=== PATIENT | female | born 1965 | race Caucasian/White ===

== ENCOUNTER → 2017-09-24 | Outpatient (CLI) | payer OTHER | LOC: M ONCR 09:51 | DX: C54.1 Malignant neoplasm of endometrium (principal) | CPT/HCPCS: G0463 ==

== ENCOUNTER 2017-10-02 14:40 | Outpatient (RCR) | payer OTHER | END 2017-10-26 | LOC: M ONCR 14:40 | DX: C54.1 Malignant neoplasm of endometrium (principal) | CPT/HCPCS: 77300 ==

== ENCOUNTER → 2017-10-02 | Outpatient (CLI) | payer OTHER | LOC: M RAD 14:04 | DX: C54.1 Malignant neoplasm of endometrium (principal) ==

== ENCOUNTER 2017-10-28 10:27 | Outpatient (RCR) | payer OTHER | END 2017-11-25 | LOC: M ONCR 10:27 | DX: C54.1 Malignant neoplasm of endometrium (principal) | CPT/HCPCS: 77336 ==

== ENCOUNTER → 2017-12-25 | Outpatient (CLI) | payer OTHER | LOC: M ONCR 13:15 | DX: C54.1 Malignant neoplasm of endometrium (principal) | CPT/HCPCS: G0463 ==

== ENCOUNTER → 2018-06-25 | Outpatient (CLI) | payer OTHER | LOC: M ONCR 14:51 | DX: C54.1 Malignant neoplasm of endometrium (principal) | CPT/HCPCS: G0463 ==

== ENCOUNTER → 2019-01-08 | Outpatient (REF) | payer OTHER | LOC: M LAB LCGH 13:16 | PROVIDERS: ATTEND Obstetrics & Gynecology | DX: Z01.419 Encounter for gynecological examination (general) (routine) without abnormal findings (principal) ==

== ENCOUNTER → 2019-05-22 | Outpatient (REF) | payer OTHER | LOC: M LAB LCGH 11:36 | PROVIDERS: ATTEND Obstetrics & Gynecology | DX: Z12.4 Encounter for screening for malignant neoplasm of cervix (principal); Z85.41 Personal history of malignant neoplasm of cervix uteri ==

== ENCOUNTER → 2019-08-13 | Outpatient (REF) | payer OTHER | LOC: M LAB LCGH 11:10 | PROVIDERS: ATTEND Obstetrics & Gynecology | DX: Z85.3 Personal history of malignant neoplasm of breast (principal); Z90.710 Acquired absence of both cervix and uterus; Z12.72 Encounter for screening for malignant neoplasm of vagina ==

== ENCOUNTER → 2020-04-06 | Outpatient (CLI) | payer OTHER ==
[2020-04-06 15:18] LABS: BASO % 0.3 % (0.0-1.0); EOS # 0.1 10^3/uL (0.0-0.5); EOS % 2.4 % (0.0-3.0); HEMATOCRIT 43.2 % (36.0-47.0); HEMOGLOBIN 13.8 g/dl (12.0-15.5); LYMPH # 0.9 10^3/uL (1.5-5.0); LYMPH % 23.5 % (24.0-44.0); MEAN CORPUSCULAR HEMOGLOBIN 29.7 pg (27.0-33.0); MEAN CORPUSCULAR HGB CONC 31.9 g/dl (32.0-36.5); MEAN CORPUSCULAR VOLUME 92.9 fl (80.0-96.0); MONO # 0.3 10^3/uL (0.0-0.8); MONO % 8.2 % (0.0-5.0); NEUTROPHILS # 2.5 10^3/uL (1.5-8.5); NEUTROPHILS % 64.8 % (36.0-66.0); PLATELET COUNT, AUTOMATED 217 10^3/uL (150-450); RED BLOOD COUNT 4.65 10^6/uL (4.00-5.40); WHITE BLOOD COUNT 3.8 10^3/uL (4.0-10.0)
[2020-04-06 15:19] LABS: AMORPHOUS SEDIMENT MODERATE (NEGATIVE); APPEARANCE, URINE TURBID (CLEAR); BACTERIA, URINE AUTO NEGATIVE (NEGATIVE); BILIRUBIN, URINE AUTO NEGATIVE (NEGATIVE); BLOOD, URINE BLOOD NEGATIVE (NEGATIVE); COLOR, URINE YELLOW (YELLOW); GLUCOSE, URINE (UA) AUTO NEGATIVE (NEGATIVE); KETONE, URINE AUTO NEGATIVE (NEGATIVE); LEUKOCYTE ESTERASE, URINE AUTO TRACE (NEGATIVE); MUCUS, URINE LARGE (NEGATIVE); NITRITE, URINE AUTO NEGATIVE (NEGATIVE); PROTEIN, URINE AUTO NEGATIVE (NEGATIVE); RBC, URINE AUTO 0 /HPF (0-3); SPECIFIC GRAVITY URINE AUTO 1.029 (1.002-1.035); SQUAMOUS EPITHELIAL CELL UR AU 0 /HPF (0-6); UROBILINOGEN, URINE AUTO 0.2 mg/dL (0.0-2.0); WBC, URINE AUTO 0 /HPF (0-3)
[2020-04-06 15:32] LABS: C REACTIVE PROTEIN QUANTITATIV 0.49 MG/DL (0.00-0.30); COMPLEMENT C3 153 MG/DL (90-180); COMPLEMENT C4 31 MG/DL (10-40); FREE T4 0.87 NG/DL (0.76-1.46); THYROID STIMULATING HORMONE 0.508 uIU/ML (0.358-3.740); TOTAL PROTEIN 6.7 GM/DL (6.4-8.2)
[2020-04-06 15:33] LABS: THYROID PEROXIDASE ANTIBODY 53.5 U/ML (<60.0)
[2020-04-07 15:06] LABS: ALBUMIN 4.02 GM/DL (3.29-5.55); ALPHA-1-GLOBULIN % 4.6 % (2.9-4.9); ALPHA-1-GLOBULINS 0.31 GM/DL (0.17-0.41); ALPHA-2-GLOBULINS 0.86 GM/DL (0.42-0.99); ALPHA-2-GLOBULINS % 12.9 % (7.1-11.8); BETA-1-GLOBULINS 0.36 GM/DL (0.28-0.60); BETA-1-GLOBULINS % 5.3 % (4.7-7.2); BETA-2-GLOBULINS 0.37 GM/DL (0.19-0.55); BETA-2-GLOBULINS % 5.5 % (3.2-6.5); GAMMA GLOBULIN % 11.7 % (11.1-18.8); GAMMA GLOBULINS 0.78 GM/DL (0.65-1.58)
[2020-04-08 12:09] LABS: ANA (HEP2) Positive (.); ANTI DS-DNA AB Negative (Negative); ANTI-SMOOTH MUSCLE ANTIBODY 21 Units (0-19); CYCLIC CITRULLINATED PEPTIDE 12 units (0-19); SSA SJOGRENS A <0.2 AI (0.0-0.9); SSB SJOGRENS B <0.2 AI (0.0-0.9)
--- NOTE | 2020-04-26 13:18 | REPPI ---
BILATERAL HAND SERIES CLINICAL: Arthritis. TECHNIQUE: AP, lateral, and bilateral oblique views of the right and left hand. FINDINGS: Relatively symmetric generalized age-related changes are noted. There is minimal sclerosis and subtle joint space narrowing at the interphalangeal level without further degenerative findings noted. IMPRESSION: Minimal joint space changes at the interphalangeal joint. No further evidence for osteoarthritic or inflammatory arthritic changes. MTDD
--- NOTE | 2020-04-26 13:18 | REPPI ---
BILATERAL WRIST SERIES CLINICAL: Arthritis. TECHNIQUE: AP, lateral, and bilateral oblique views of the right and left wrist. FINDINGS: The carpal bones are intact and essentially symmetric and age appropriate. Minimal pancarpal sclerosis and minimal joint space narrowing at the radiocarpal joint line noted bilaterally. No further overt osteoarthritic or inflammatory arthritic degenerative changes are appreciated. There is no evidence for acute or healed injury. IMPRESSION: Essentially age-related changes. No overt osteoarthritic or inflammatory arthritic findings noted. MTDD
== END ==
LOC: M PLAIMG 10:57
PROVIDERS: ATTEND Internal Medicine
DX: M25.531 Pain in right wrist (principal); M25.532 Pain in left wrist; D72.819 Decreased white blood cell count, unspecified; M13.0 Polyarthritis, unspecified; R79.82 Elevated C-reactive protein (CRP)

== ENCOUNTER → 2020-08-15 | Outpatient (REF) | payer OTHER ==
[2020-08-15 19:43] LABS: CLOSTRIDIUM DIFFICILE PCR NEGATIVE (NEGATIVE)
== END ==
LOC: M LAB REF 16:00
PROVIDERS: ATTEND Internal Medicine Gastroenterology
DX: R19.7 Diarrhea, unspecified (principal)

== ENCOUNTER → 2020-09-17 | Outpatient (CLI) | payer OTHER ==
[~2020-09-17] MED LIST: AMLO1TAB24 PO; DICY20TA11 PO; EQ M PO; MELO15TA28 PO; MULTIVITAMIN PO; PROAAER10 INH; VITA500C19 PO; [UNRECOGNIZED DRUG - CODE] PO
== END ==
LOC: M LABSMTC 08:12
PROVIDERS: ATTEND Anesthesiology
DX: Z01.812 Encounter for preprocedural laboratory examination (principal); Z20.822 Contact with and (suspected) exposure to COVID-19

== ENCOUNTER 2020-09-22 11:48 | Day surgery (SDC) | payer OTHER ==
[~2020-09-22] VITALS: Ht 154.9 cm; Wt 82.1 kg
[~2020-09-22 11:48] MED LIST changes: +LIDOCAINE 2% 100MG/5ML SDV (FOR ANES.) As Ordered ONE; +NS 1,000 ML IV ONE; +propofoL 200 MG/20 ML VIAL As Ordered ONE
--- OUTSIDE RECORDS SUMMARY | 2020-09-22 12:02 | CCD | Continuity of Care Document ---
Author Author Sandra ZAZUETA M.D. Organization Unknown Address [address], [address] [place] [address] Phone [phone] Care Team Providers Care [employer] Name Role Phone Madhav Pineda M.D. AUT[facility] [phone] Tia Cagle M.D. AUTM [phone] AUTM Unavailable AUTM Unavailable Problems Active Problems Provider Date Abnormal findings on diagnostic imaging of lung Rudy Lim D.O. Onset: 07/07/2020 Difficulty breathing Rudy Lim D.O. Onset: 07/07/2020 Essential hypertension Jason Zazueta M.D. Onset: 07/29 Social History Type Date Description Comments Sex Unknown ETOH Use Sociable Tobacco Use Start: Unknown Patient has never smoked Smoking Status Reviewed: 07/07/20 Patient has never smoked Allergies, Adverse Reactions, Alerts Active Allergies Reaction Severity Comments Date Advil Facial Swelling 07/07/2020 Medications Active Medications SIG Qnty Indications Ordering Provide r Date Dicyclomine HCL 20mg Tablets take 1 tablet by mouth 2 to 3 times daily, take atleast 15 minutes before meals (for diarrhea and abdominal cramps) 90tabs R19.7 Jason Zazueta M.D. 08/08/2020 Amlodipine Besylate 5mg Tablets 1tab po qd Unknown Meloxicam 15mg Tablets 1tab p o prn Unknown Albuterol Sulfate HFA 108(90Base) mcg/Act Aerosol inhale two puffs by mouth four times a day as needed Unknown Vitamin C 500mg Capsules 1cap po qd Unknown Complex Multivitamin Women 50+ Tablet 1tab po qd Unknown Motion Sickness Relief 25mg Chewta bs 1tab po qd Unknown ALL Day Pain Relief 220mg Tablets 1tab po prn Unknown Immunizations Description No Information Available Vital Signs Date Vital Result Comment 08/08/2020 11:12am BP Systolic 126 mmHg BP Diastolic 72 mmHg Height 61 inches 5'1" Weight 183.00 lb BMI (Body Mass Index) 34.6 kg/m2 [place] Body Weight 105 lb Weight 83.009 kg BSA (Body Surface Area) 1.82 m2 07/07/2020 12:54pm BP Systolic 132 mmHg BP Diastolic 92 mmHg Heart Rate 88 /min O2 % BldC Oximetry 97 % Body Temperature 98.6 F Height 60 inches 5'0" Weight 180.00 lb BMI (Body Mass Index) 35.1 kg/m2 [place] Body Weight 100 lb Weight 81.648 kg BSA (Body Surface Area) 1.78 m2 Results Test Acquired Date Facility Test Result H/L Range Note FVL/[place] 07/07/2020 [facility] SEE IMAGE FVC-Pred 2.93 L FVC-Pre 2.20 L FVC-%Pred-Pre 74 L FVC-LLN 2.32 L Fev1-Pred 2.29 L Fev1-Pre 1.82 L Fev1-%Pred-Pre 79 L Fev1-LLN 1.78 L Fev6-Pred 2.84 L Fev6-Pre 2.19 L Fev6-%Pred-Pre 77 L Fev6-LLN 2.24 L Pvi3ofa-Bkjb 79 % Crs5gii-Ezw 83 % Rjv3gvw-%Pred-Pre 105 % Wos7fiy-HAM 69 % Gfn9udi-Rlhp 97 % Qki4pre-Jla 100 % Tgo7xzd-%Pred-Pre 102 % FEFMax-Pred 5.90 L/E/sec FEFMax-Pre 4.09 L/E/sec FEFMax-%Pred-Pre 69 L/E/sec FEFMax-LLN 4.39 L/E/sec Cnx5685-Ytvk 2.30 L/E/sec Hlj5680-Jwt 1.94 L/E/sec Mze5398-%Pred-Pre 84 L/E/sec Ehw9085-PEZ 1.20 L/E/sec ExpTime-Pre 7.17 sec Zdw9mrq3-Elsy 81 % Wua1iet7-Nyn 83 % Vea3sod7-%Pred-Pre 102 % All9hhz6-HVG 73 % Procedures Date Code Description Status 07/07/2020 49494 Spirometry Completed Medical Devices Description No Information Available Encounters Type Date Location Provider Dx Diagnosis Office Visit 07/07/2020 1:00p [facility] Pulmonary/Thoracic Rudy dexter DNoe R91.8 Other nonspecific abnormal finding of jairo ng field R06.00 Dyspnea, unspecified Assessments Date Code Description Provider 08/08/2020 R19.7 Diarrhea, unspecified Jason Zazueta M.D. 08/08/2020 R10.30 Lower abdominal pain, unspecifie d Jason Zazueta M.D. 07/07/2020 R91.8 Other nonspecific abnormal findi ng of lung field Rudy Lim D.O. 07/07/2020 R06.00 Dyspnea, unspecified Rudy Lim D.Justina Plan of Treatment Future Appointment(s):* 07/14/2021 10:30 am - Rudy Lim D.O. at [facility] Pulmonary/Thoracic 08/08/2020 - Jason Zazueta M.D.* R19.7 Diarrhea, unspecified * R10.30 Lower abdominal pain, unspecified * * New Medication:* Dicyclomine HCL 20 mg * New Labs:* Stool For Polys, Ordered: 08/08/20 * Clostridium Difficile PCR, Ordered: 08/08/20 * Recommendations:* -- Educated patient about the prior test results and need for further work up. -- Will obtain stool testing -- Will schedule for colonoscopy. The procedure, indications, risks (bleeding, perforation, infection, hypotension, respiratory depression, allergy, need for endotracheal intubation, surgery, or even ), benefits, limitations (e.g., missing a lesion), and all other alternatives (including no intervention) were explained to the patient who understood and agreed for the procedure. -- Patient is educated about the bowel preparation and prescriptions were sent to pharmacy. -- Instructions given about having a friend or family member for taking patient back home after the procedure. Functional Status Description No Information Available Mental Status Description No Information Available Referrals Refer to Reason for Referral Status Appt Date Jason Zazueta M.D. aggressive GI S/S, sanjay kim Created 08/08/2020 [address], [address] [place] [address] [phone]
--- OUTSIDE RECORDS SUMMARY | 2020-09-22 12:02 | CCD ---
Author Author [facility] Organization [facility] Address Unknown Phone Unavailable Care Team Providers Care Bioinformatics Scientist Name Role Phone Abimbola DOWELL MD Unavailable Unavailable Abimbola DOWELL MD Unavailable Unavailable Abimbola DOWELL MD Unavailable Unavailable Abimbola DOWELL MD Unavailable Unavailable Abimbola DOWELL MD Unavailable Unavailable Abimbola DOWELL MD Unavailable Unavailable Abimbola DOWELL MD Unavailable Unavailable Abimbola DOWELL MD Unavailable Unavailable Abimbola DOWELL MD Unavailable Unavailable Abimbola DOWELL MD Unavailable Unavailable Abimbola DOWELL MD Unavailable Unavailable Abimbola DOWELL MD Unavailable Unavailable Abimbola DOWELL MD Unavailable Unavailable Abimbola DOWELL MD Unavailable Unavailable Abimbola DOWELL MD Unavailable Unavailable Abimbola DOWELL MD Unavailable Unavailable Abimbola DOWELL MD Unavailable Unavailable Abimbola DOWELL MD Unavailable Unavailable Abimbola DOWELL MD Unavailable Unavailable Abimbola DOWELL MD Unavailable Unavailable Abimbola DOWELL MD Unavailable Unavailable Abimbola DOWELL MD Unavailable Unavailable Abimbola DOWELL MD Unavailable Unavailable Abimbola DOWELL MD Unavailable Unavailable Abimbola DOWELL MD Unavailable Unavailable Abimbola DOWELL MD Unavailable Unavailable ALEKSANDR SWEET Unavailable Unavailable Oleg Robert MD Unavailable Unavailable Otilia Rivers MD Unavailable [phone] Rivers, Otilia SUTTON Unavailable [phone] Rivers, Otilia SUTTON Unavailable [phone] Rivers, Otilia SUTTON Unavailable [phone] Rivers, Otilia SUTTON Unavailable [phone] Rivers, Otilia SUTTON Unavailable [phone] Rivers, Otilia SUTTON Unavailable [phone] Rivers, Otilia SUTTON Unavailable [phone] Rivers, Otilia SUTTON Unavailable [phone] Doctor Provided, Family PHYS No Family Unavailable U navailable Aleksandr Sweet MD Unavailable Unavailable Aleksandr Sweet MD Unavailable Unavailable Aleksandr Sweet MD Unavailable Unavailable Aleksandr Sweet MD Unavailable Unavailable Aleksandr Sweet MD Unavailable Unavailable Aleksandr Sweet MD Unavailable Unavailable Aleksandr Sweet MD Unavailable Unavailable Aleksandr Sweet MD Unavailable Unavailable Birchenough, R Anisha DO Unavailable Unavailable Birchenough, R Anisha DO Unavailable Unavailable Birchenough, R Anisha DO Unavailable Unavailable Birchenough, R Anisha DO Unavailable Unavailable Birchenough, R Anisha DO Unavailable Unavailable Birchenough, R Anisha DO Unavailable Unavailable Birchenough, R Anisha DO Unavailable Unavailable Birchenough, R Anisha DO Unavailable Unavailable Birchenough, R Anisha DO Unavailable Unavailable Birchenough, R Anisha DO Unavailable Unavailable Birchenough, R Anisha DO Unavailable Unavailable Birchenough, R Anisha DO Unavailable Unavailable Birchenough, R Anisha DO Unavailable Unavailable Birchenough, R Anisha DO Unavailable Unavailable Abimbola DOWELL MD Unavailable Unavailable Abimbola DOWELL MD Unavailable Unavailable Abimbola DOWELL MD Unavailable Unavailable Abimbola DOWELL MD Unavailable Unavailable Abimbola DOWELL MD Unavailable Unavailable Abimbola DOWELL MD Unavailable Unavailable Abimbola DOWELL MD Unavailable Unavailable Abibmola DOWELL MD Unavailable Unavailable Abimbola DOWELL MD Unavailable Unavailable Abimbola DOWELL MD Unavailable Unavailable Abimbola DOWELL MD Unavailable Unavailable Abimbola DOWELL MD Unavailable Unavailable Abimbola DOWELL MD Unavailable Unavailable Abimbola DOWELL MD Unavailable Unavailable Abimbola DOWELL MD Unavailable Unavailable Abimbola DOWELL MD Unavailable Unavailable Abimbola DOWELL MD Unavailable Unavailable Abimbola DOWELL MD Unavailable Unavailable Abimbola DOWELL MD Unavailable Unavailable Abimbola DOWELL MD Unavailable Unavailable Abimbola DOWELL MD Unavailable Unavailable Abimbola DOWELL MD Unavailable Unavailable Abimbola DOWELL MD Unavailable Unavailable Abimbola DOWELL MD Unavailable Unavailable Abimbola DOWELL MD Unavailable Unavailable Abimbola DOWELL MD Unavailable Unavailable SEARS, A GHANSHYAM DO Unavailable Unavailable SEARS, A GHANSHYAM DO Unavailable Unavailable SEARS, A GHANSHYAM DO Unavailable Unavailable SEARS, A GHANSHYAM DO Unavailable Unavailable SEARS, A GHANSHYAM DO Unavailable Unavailable SEARS, A GHANSHAYM DO Unavailable Unavailable SEARS, A GHANSHYAM DO Unavailable Unavailable SEARS, A GHANSHYAM DO Unavailable Unavailable SEARS, A GHANSHYAM DO Unavailable Unavailable SEARS, A GHANSHYAM DO Unavailable Unavailable SEARS, A GHANSHYAM DO Unavailable Unavailable SEARS, A GHANSHYAM DO Unavailable Unavailable SEARS, A GHANSHYAM DO Unavailable Unavailable SEARS, A GHANSHYAM DO Unavailable Unavailable SEARS, A GHANSHYAM DO Unavailable Unavailable SEARS, A GHANSHYAM DO Unavailable Unavailable SEARS, A GHANSHYAM DO Unavailable Unavailable SEARS, A GHANSHYAM DO Unavailable Unavailable SEARS, A GHANSHYAM DO Unavailable Unavailable SEARS, A GHANSHYAM DO Unavailable Unavailable SEARS, A GHANSHYAM DO Unavailable Unavailable SEARS, A GHANSHYAM DO Unavailable Unavailable SEARS, A GHANSHYAM DO Unavailable Unavailable SEARS, A GHANSHYAM DO Unavailable Unavailable SEARS, A GHANSHYAM DO Unavailable Unavailable SEARS, A GHANSHYAM DO Unavailable Unavailable SEARS, A GHANSHYAM DO Unavailable Unavailable SEARS, A GHANSHYAM DO Unavailable Unavailable SEARS, A GHANSHYAM DO Unavailable Unavailable SEARS, A GHANSHYAM DO Unavailable Unavailable SEARS, A GHANSHYAM DO Unavailable Unavailable SEARS, A GHANSHYAM DO Unavailable Unavailable SEARS, A GHANSHYAM DO Unavailable Unavailable SEARS, A GHANSHYAM DO Unavailable Unavailable SEARS, A GHANSHYAM DO Unavailable Unavailable SEARS, A GHANSHYAM DO Unavailable Unavailable SEARS, A GHANSHYAM DO Unavailable Unavailable SEARS, A GHANSHYAM DO Unavailable Unavailable SEARS, A GHANSHYAM DO Unavailable Unavailable SEARS, A GHANSHYAM DO Unavailable Unavailable SEARS, A GHANSHYAM DO Unavailable Unavailable SEARS, A GHANSHYAM DO Unavailable Unavailable SEARS, A GHANSHYAM DO Unavailable Unavailable SEARS, A GHANSHYAM DO Unavailable Unavailable SEARS, A GHANSHYAM DO Unavailable Unavailable SEARS, A GHANSHYAM DO Unavailable Unavailable Re-disclosure Warning The records that you are about to access may contain information from federally-assisted alcohol or drug abuse programs. If such information is present, then the following federally mandated warning applies: This information has been disclosed to you from records protected by federal confidentiality rules (42 CFR part 2). The federal rules prohibit you from making any further disclosure of this information unless further disclosure is expressly permitted by the written consent of the person to whom it pertains or as otherwise permitted by 42 CFR part 2. A general authorization for the release of medical or other information is NOT sufficient for this purpose. The Federal rules restrict any use of the information to criminally investigate or prosecute any alcohol or drug abuse patient.The records that you are about to access may contain highly sensitive health information, the redisclosure of which is protected by Article 27-F of the [facility] Public Health law. If you continue you may have access to information: Regarding HIV / AIDS; Provided by facilities licensed or operated by the [facility] Office of Mental Health; or Provided by the [facility] Office for People With Developmental Disabilities. If such information is present, then the following [facility] mandated warning applies: This information has been disclosed to you from confidential records which are protected by state law. State law prohibits you from making any further disclosure of this information without the specific written consent of the person to whom it pertains, or as otherwise permitted by law. Any unauthorized further disclosure in violation of state law may result in a fine or senior care sentence or both. A general authorization for the release of medical or other information is NOT sufficient authorization for further disc losure. Family History Family Member Name Family Member Gender Family Member Status Date o f Status Description Data Source(s) Unknown Condition [facility] Unknown Condition [facility] Unknown Condition [facility] Unknown Condition [facility] Unknown Condition [facility] Unknown Condition [facility] Unknown Condition [facility] Encounters Encounter Providers Location Date Indications Data Source(s ) Outpatient Attender: Aleksandr Sweet MD CPSCAORT-ONCPDMED 01:34:00 PM EST - 07/14/2020 01:35:00 PM EST FU WBC [facility] FU WBC Patient discharged. Outpatient Attender: GHANSHYAM Best/Crystal/Joey/Kim 07/07/2020 12:00:00 PM EST [facility] ([facility], ) Outpatient Attender: [facility]U [facility]LL [facility] 06/08/2020 10:25:00 AM EST - 06/08/2020 10:26:00 AM EST [facility] Patient discharged. Outpatient [facility] [address] 05/24/2020 12:00:00 AM EDT eCW1 ([facility]) Outpatient Attender: Aleksandr Sweet MD CPSCAORT-ONCPDMED 02/2020 11:23:00 AM EDT - 04/05/2020 11:24:00 AM EDT LOW WBC PT COMING FROM [facility] LOW WBC PT COMING FROM [facility] Patient discharged. 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 Outpatient Attender: Anisha Estrada DO 02/23/2020 04:04:00 PM EDT SCREENING [facility] SCREENING C Attender: JU DOWELL MD CPSCAORT-LABCA 09:09:00 AM EDT - 02/10/2020 09:10:00 AM EDT [facility] Patient discharged. Outpatient Attender: JU DOWELL MD CPSSARATH-CPSCAORT 02/10/2020 08:34:00 AM EDT - 02/10/2020 08:35:00 AM EDT [facility] Patient discharged. Outpatient Attender: Anisha Estrada DO 01/11/2020 05:34 :00 PM EDT Z85.42 [facility] Z85.42 Outpatient Attender: Anisha ARENASeferrer: No Famil y Doctor Provided 01/11/2020 02:31:00 PM EDT - 01/11/2020 03:44:00 PM EDT [facility] Outpatient Attender: JU DOWELL MDReferrer: JU COREA MD 01/07/2020 09:15:00 AM EDT - 05/31/2020 12:13:00 PM EST B HAND INJURY [facility] B HAND INJURY Patient discharged. Outpatient Attender: JU DOWELL MD CPSCAORT-CPSCAORT 08/22/2019 09:46:00 AM EST - 08/22/2019 09:47:00 AM EST [facility] Patient discharged. Outpatient Attender: Oleg Robert MD 08/13/2019 04:00:0 0 PM EST Z85.3 [facility] Z85.3 Outpatient Attender: Oleg Robert MDReferrer: No Family Doctor Provided 08/13/2019 03:37:00 PM EST - 08/13/2019 04:20:00 PM EST [facility] Medications Medication Brand Name Start Date Product Form Dose Route Admi nistrative Instructions Pharmacy Instructions Status Indications Reaction Description Data Source(s) 420 gram 08/29/2020 12:00:00 AM EST recon soln 4000 DRINK THE LIQUID PER THE PRE-PROCEDURE INSTRUCTIONS DRINK THE LIQUID PER THE PRE-PROCEDUR E INSTRUCTIONS SOLD: 08/30/2020 [facility] 5 mg 08/29/2020 12:00:00 AM EST tablet,delayed release (DR/EC) 4 TAKE 4 TABLETS BY MOUTH TOGETHER PER BOWEL PREP INSTRUCTIONS TAKE 4 TABLETS BY MOUTH TOGETHER PER BOWEL PREP INSTRUCTIONS SOLD: 08/30/2020 [facility] 20 mg 08/08/2020 12:00:00 AM EST tablet 90 TAKE ONE TABLET BY MOUTH 2-3 TIMES DAILY, TAKE ATLEAST 15 MINUTES BEFORE MEALS (FOR DIARRHEA AND ABDOMINAL CRAMPS) TAKE ONE TABLET BY MOUTH 2-3 TIMES DAILY , TAKE ATLEAST 15 MINUTES BEFORE MEALS (FOR DIARRHEA AND ABDOMINAL CRAMPS) SOLD: 09/16/2020 [facility] 20 mg 08/08/2020 12:00:00 AM EST tablet 90 TAKE ONE TABLET BY MOUTH 2-3 TIMES DAILY, TAKE ATLEAST 15 MINUTES BEFORE MEALS (FOR DIARRHEA AND ABDOMINAL CRAMPS) TAKE ONE TABLET BY MOUTH 2-3 TIMES DAILY , TAKE ATLEAST 15 MINUTES BEFORE MEALS (FOR DIARRHEA AND ABDOMINAL CRAMPS) SOLD: 08/09/2020 [facility] Dicyclomine Hydrochloride 20 MG Oral Tablet Dicyclomine HCL 08/08/2020 12:00:00 AM EST ORAL active [facility] ([facility]) 5 mg 07/19/2020 12:00:00 AM EST tablet 30 TAKE ONE TABLET BY MOUTH EVERY DAY TAKE ONE TABLET BY MOUTH EVERY DAY SOLD: 08/30/2020 [facility] 5 mg 07/19/2020 12:00:00 AM EST tablet 30 TAKE ONE TABLET BY MOUTH EVERY DAY TAKE ONE TABLET BY MOUTH EVERY DAY SOLD: 07/21/2020 [facility] 15 mg 04/06/2020 12:00:00 AM EDT tablet 30 TAKE ONE TABLET BY MOUTH EVERY DAY TAKE ONE TABLET BY MOUTH EVERY DAY SOLD: 05/12/2020 [facility] 15 mg 04/06/2020 12:00:00 AM EDT tablet 30 TAKE ONE TABLET BY MOUTH EVERY DAY TAKE ONE TABLET BY MOUTH EVERY DAY SOLD: 04/07/2020 [facility] 15 mg 04/06/2020 12:00:00 AM EDT tablet 30 TAKE ONE TABLET BY MOUTH EVERY DAY TAKE ONE TABLET BY MOUTH EVERY DAY SOLD: 06/27/2020 [facility] 20 mg 03/18/2020 12:00:00 AM EDT tablet 60 TAKE ONE TABLET BY MOUTH TWICE A DAY TAKE ONE TABLET BY MOUTH TWICE A DAY SOLD: 04/19/2020 [facility] 20 mg 03/18/2020 12:00:00 AM EDT tablet 60 TAKE ONE TABLET BY MOUTH TWICE A DAY TAKE ONE TABLET BY MOUTH TWICE A DAY SOLD: 06/27/2020 [facility] 20 mg 03/18/2020 12:00:00 AM EDT tablet 60 TAKE ONE TABLET BY MOUTH TWICE A DAY TAKE ONE TABLET BY MOUTH TWICE A DAY SOLD: 03/18/2020 [facility] 20 mg 03/18/2020 12:00:00 AM EDT tablet 60 TAKE ONE TABLET BY MOUTH TWICE A DAY TAKE ONE TABLET BY MOUTH TWICE A DAY SOLD: 05/20/2020 [facility] Albuterol Sulfate 08/13/2019 04:17:45 PM EST 2 PUFFS completed [facility] Albuterol Sulfate 08/13/2019 04:17:45 PM EST 2 PUFFS completed [facility] Amlodipine 5 MG Oral Tablet Amlodipine 08/13/2019 04:16:15 PM EST 5 MG completed [facility] Amlodipine 5 MG Oral Tablet Amlodipine 08/13/2019 04:16:15 PM EST 5 MG completed [facility] 10 mg 07/21/2019 12:00:00 AM EST tablet 30 TAKE ONE TABLET BY MOUTH EVERY DAY TAKE ONE TABLET BY MOUTH EVERY DAY SOLD: 01/27/2020 [facility] 10 mg 07/21/2019 12:00:00 AM EST tablet 30 TAKE ONE TABLET BY MOUTH EVERY DAY TAKE ONE TABLET BY MOUTH EVERY DAY SOLD: 03/18/2020 [facility] 10 mg 07/21/2019 12:00:00 AM EST tablet 30 TAKE ONE TABLET BY MOUTH EVERY DAY TAKE ONE TABLET BY MOUTH EVERY DAY SOLD: 05/20/2020 [facility] 10 mg 07/21/2019 12:00:00 AM EST tablet 30 TAKE ONE TABLET BY MOUTH EVERY DAY TAKE ONE TABLET BY MOUTH EVERY DAY SOLD: 09/17/2019 [facility] 10 mg 07/21/2019 12:00:00 AM EST tablet 30 TAKE ONE TABLET BY MOUTH EVERY DAY TAKE ONE TABLET BY MOUTH EVERY DAY SOLD: 11/22/2019 [facility] Friunhbs-Yay-Owqo-Fa-Lutein 05/22/2019 09:09:00 AM EDT 1 TAB completed [facility] Snegewof-Gdy-Novc-Fa-Lutein (Centrum Jaylin kevin Women) 8 mg iron-400 mcg-300 mcg tablet 05/22/2019 09:09:00 AM EDT 1 TAB completed [facility] Insurance Providers Payer name Policy type / Coverage type Policy ID Covered constitution party ID Covered constitution party's relationship to carpenter Policy Carpenter Plan Information [facility] [id number] SP [id number] MVP MCDO [id number] SP [id number] MVP [facility] 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 [id number] 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 M [id number] [facility] O [id number] S [id number] [employer]ED[employer] [facility] [id number] 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 [id number] [employer] [place] [id number] SP [id number] [employer] [place] [id number] SP [id number] [facility] GIAN [id number] SP [id number] 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 [id number] SP [id number] [facility] [id number] SP [id number] [facility] -O/P [id number] 18 [id number] Problems, Conditions, and Diagnoses Code Display Name Description Problem Type Effective Dates Data Source(s) 37310997 Essential hypertension Essential hypertension Problem 08/08/2020 12:00:00 AM EST [facility] ([facility], ) [id number] Difficulty breathing Difficulty breathing Problem 07/07/2020 12:00:00 AM EST [facility] ([facility], ) [id number] Abnormal findings on diagnostic imaging of lung Abnormal findings on diagnostic imaging of lung Problem 07/07/2020 12:00:00 AM EST [facility] ([facility], ) C54.1 Malignant neoplasm of endometrium MALIGNANT NEOP LASM OF ENDOMETRIUM Diagnosis 03/11/2020 10:49:00 AM EDT [facility] D72.819 Decreased white blood cell count, unspec ified DECREASED WHITE BLOOD CELL COUNT, UNSPECIFIED Diagnosis 03/11/2020 10:49:00 AM EDT [facility] G56.03 Carpal tunnel syndrome, bilateral upper limbs CARPAL TUNNEL SYNDROME, BILATERAL UPPER LIMBS Diagnosis 02/10/2020 09:09:00 AM EDT [facility] M25.50 Pain in unspecified joint PAIN IN UNSPECIFIED JOINT Di agnosis 02/10/2020 09:09:00 AM EDT [facility] Surgeries/Procedures Procedure Description Date Indications Data Source(s) Spirometry 07/07/2020 12:00:00 AM MAGDALENA PERALES ([facility], ) Computerized axial tomography of thorax with contrast (proce dure) 03/31/2020 10:36:00 AM [facility] Computed tomography of abdomen and pelvis with contrast (pro cedure) 03/31/2020 10:36:00 AM [facility] OFFICE OUTPATIENT NEW 20 MINUTES OFFICE/OUTPATIENT VISIT NEW 03/11/2020 12:00:00 AM [facility] FLOW CYTOMETRY CELL SURF MARKER TECHL ONLY 1ST FLOWCYTOMETRY / TC 1 MARKER 03/11/2020 12:00:00 AM [facility] PROTEIN ELECTROPHORETIC FRACTJ&QUANTJ SERUM PROTEIN E-PHORES IS SERUM 03/11/2020 12:00:00 AM [facility] PROTEIN XCPT REFRACTOMETRY SERUM PLASMA/WHL BLD ASSAY OF PRO TEIN SERUM 03/11/2020 12:00:00 AM [facility] NEPHELOMETRY EACH ANALYTE ALVA ASSAY NEPHELOMETRY NOT SPEC 12:00:00 AM [facility] IMMUNOFIXJ ELECTROPHORESIS SERUM IMMUNOFIX E-PHORESIS SERUM 03/11/2020 12:00:00 AM [facility] GAMMAGLOBULIN IGA IGD IGG IGM EACH ASSAY IGA/IGD/IGG/IGM EAC H 03/11/2020 12:00:00 AM [facility] DNA ANTIBODY AUGUSTINE/DOUBLE STRANDED DNA ANTIBODY AUGUSTINE 02/26 12:00:00 AM [facility] ACUTE HEPATITIS PANEL ACUTE HEPATITIS PANEL 03/11/2020 12:00:00 AM [facility] FOLIC ACID SERUM ASSAY OF FOLIC ACID SERUM 03/11/2020 12:00:[address] [facility] CYANOCOBALAMIN VITAMIN B-12 VITAMIN B-12 03/11/2020 12:00:00 AM [facility] LACTATE DEHYDROGENASE LDH LACTATE (LD) (LDH) ENZYME 03/11/2020 1 2:00:00 AM [facility] Screening mammography (procedure) 02/23/2020 04:28:[address] [facility] ANTINUCLEAR ANTIBODIES RACHEL TITER ANTINUCLEAR ANTIBODIES (RACHEL ) 02/10/2020 12:00:00 AM [facility] ANTINUCLEAR ANTIBODIES RACHEL ANTINUCLEAR ANTIBODIES 02/10/2020 12:00: 00 AM [facility] ANTIBODY BORRELIA BURGDORFERI LYME DISEASE LYME DISEASE ANTI BODY 02/10/2020 12:00:00 AM [facility] ANTISTREPTOLYSIN 0 TITER ANTISTREPTOLYSIN O TITER 02/10/2020 12:00: 00 AM [facility] CYCLIC CITRULLINATED PEPTIDE ANTIBODY CCP ANTIBODY 02/10/2020 12:00 :00 AM [facility] RHEUMATOID FACTOR QUANTITATIVE RHEUMATOID FACTOR QUANT 02/09 12:00:00 AM [facility] COLLECTION VENOUS BLOOD VENIPUNCTURE ROUTINE VENIPUNCTURE 12:00:00 AM [facility] SEDIMENTATION RATE RBC NON-AUTOMATED RBC SED RATE NONAUTOMAT ED 02/10/2020 12:00:00 AM [facility] BLOOD COUNT COMPLETE AUTO&AUTO DIFRNTL WBC COUNT COMPLETE CB C W/AUTO DIFF WBC 02/10/2020 12:00:00 AM [facility] URIC ACID BLOOD ASSAY OF BLOOD/URIC ACID 02/10/2020 12:00:00 AM [facility] C-REACTIVE PROTEIN C-REACTIVE PROTEIN 02/10/2020 12:00:00 AM [facility] COMPREHENSIVE METABOLIC PANEL COMPREHEN METABOLIC PANEL 01/26 12:00:00 AM [facility] Results ID Date Data Source [id number] 09/17/2020 09:00:00 AM EST [facility] Name Value Range Interpretation Code Description Data Tess rce(s) Supporting Document(s) SARS coronavirus 2 RNA Not Detected [facility] [place] This lab was ordered by [facility] and reported by [facility]. ID Date Data Source [id number] 07/07/2020 12:54:00 PM EST [facility] ([facility], ) Name Value Range Interpretation Code Description Data Tses rce(s) Supporting Document(s) PDFReport Laboratory test result [facility] ([facility], ) FVC-Pred 2.93 L [facility] ([facility], ) FVC-Pre 2.20 L [facility] ([facility], ) FVC-%Pred-Pre 74 L [facility] ([facility], ) FVC-LLN 2.32 L [facility] ([facility], ) Fev1-Pred 2.29 L [facility] ([facility]) Fev1-Pre 1.82 L [facility] ([facility]) Fev1-LLN 1.78 L [facility] ([facility], ) Fev1-%Pred-Pre 79 L [facility] ([facility], ) Fev6-Pred 2.84 L [facility] ([facility]) Fev6-Pre 2.19 L [facility] ([facility], ) Fev6-%Pred-Pre 77 L [facility] ([facility]) Fev6-LLN 2.24 L [facility] ([facility]) Tuc4irr-Zveg 79 % [facility] ([facility]) Lws0jna-Gpj 83 % [facility] ([facility]) Hfj5xam-%Pred-Pre 105 % [facility] ([facility]) Xcz0gnw-TMG 69 % [facility] ([facility]) Jxg6kot-Cqgs 97 % [facility] ([facility]) Zxi8tex-Zss 100 % [facility] ([facility]) Wsd2kvs-%Pred-Pre 102 % [facility] ([facility]) FEFMax-Pred 5.90 L/E/sec [facility] ([facility]) FEFMax-%Pred-Pre 69 L/E/sec [facility] ([facility]) FEFMax-Pre 4.09 L/E/sec [facility] ([facility]) FEFMax-LLN 4.39 L/E/sec [facility] ([facility]) [id number]-Lin 1.94 L/E/sec [facility] ([facility]) Bdd4420-Uwjj 2.30 L/E/sec [facility] ([facility]) Nhr3582-%Pred-Pre 84 L/E/sec [facility] ([facility], ) Rpo5851-CMU 1.20 L/E/sec [facility] ([facility], ) ExpTime-Pre 7.17 sec [facility] ([facility], ) Ebb0ccc0-Athy 81 % [facility] ([facility], ) Rho8gxq9-%Pred-Pre 102 % [facility] ([facility], ) Hrf6vny3-Sla 83 % [facility] ([facility], ) [id number]-LZK 73 % [facility] ([facility], ) ID Date Data Source [id number] 04/01/2020 08:43:00 AM EDT [facility] [address] [place] [address] [phone] NAME SEX PT STATUS ACCOUNT NUMBER SANDRA TREVINO REG REF [id number] ORDERING PHYSICIAN LOCATION MEDICAL RECORD NO. ALEKSANDR SWEET MD CT [id number] ATTENDING PHYSICIAN DATE OF DATE OF EXAM/TIME Madhav Pineda MD 1965 03/31/201035 TYPE / EXAM CT Thorax with contrast REASON FOR EXAM ENDOMETRIAL CANCER AND LEUKOPENIA COMPARISON: None TECHNIQUE: Contrast Enhanced Multidetector-Row Chest Computed Tomography images were acquired. FINDINGS: Pulmonary Parenchyma and Airways: No acute pulmonary parenchymal or airway process is present. A pleural-based pulmonary nodule seen on the right is seen in the superior segment, and it has base against the major fissure. It is somewhat triangular in shape, and it measures approximately 4.6 mm.And most likely represents intrapulmonary lymph node. A solid nodule is seen in the middle lobe, andit measures approximately 3.4 mm. Subsegmental atelectasis is seen at the lung bases, bilaterally. Pleural Space: No pleural fluid or thickening is present. Heart and Pericardium: The cardiac chambers are normal in size. No pericardial fluid or thickening is present. Mediastinum and Elizabeth: No mediastinal mass is present. Enlarged right hilar lymph nodes are seen. 2 lymph nodes are seen adjacent to each other. One demonstrates a short axis of approximately 1.3 cm, and the other demonstrates short axis of approximately 1.0 cm. Subcarinal lymph nodes are seen, as well, but none of them is pathologically enlarged.. Thoracic Vessels: No vascular abnormality is present. Osseous Structures and Chest Wall: No pathologic osseous or soft-tissue process is present. Upper Abdomen: No pathologic process is present in the imaged portion of the upper abdomen. Additional findings: None. IMPRESSION: 1. 3.4 mm right middle lobe nodule. Probable intrapulmonary lymph node, as described. 2. Enlarged right hilar lymph nodes, as described. 3. No lytic or blastic bon e lesion. 4. No focal pulmonary consolidation or pleural effusion. Dose reduction was performed utilizing CARE dose with automated adjustment of the kV and MAS according to patient size, iterative reconstruction, automated exposure control, as well as adaptivedose shielding. Reported By Osei Chan MD on 04/01/20842 Signed By Osei Chan MD on 04/01/20855 Date Time CC: Osei Chan MD; Madhav Pineda MD Techn: MOR Trans Dt/Tm: Trans by: DT Prt Dt/Tm: : Total DLP = 400.00 mGy-cm : Total Radiation Dose = 5.2000 mSv Lifetime Dose: 6.2350 mSv Name Value Range Interpretation Code Description Data Tess rce(s) Supporting Document(s) ID Date Data Source [id number] 04/01/2020 08:37:00 AM EDT [facility] [address] [place] [address] [phone] NAME SEX PT STATUS ACCOUNT NUMBER SANDRA TREVINO REG REF [id number] ORDERING PHYSICIAN LOCATION MEDICAL RECORD NO. ALEKSANDR SWEET MD CT [id number] ATTENDING PHYSICIAN DATE OF DATE OF EXAM/TIME Madhav Pineda MD 1965 03/31/201035 TYPE / EXAM CT Abd/pel w/ contrast REASON FOR EXAM ENDOMETRIAL CANCER AND LEUKOPENIA COMPARISON: August 02, 2017 TECHNIQUE: CT images through the abdomen and pelvis obtained with intravenous contrast. FINDINGS: LUNG BASES: Subsegmental atelectasis is seen in the lung bases. No pulmonary nodule is seen.1 LIVER: No focal mass lesions. No intrahepatic biliary ductal dilatation. GALLBLADDER: Cholesterol gallstone is seen in the gallbladder. No free pericholecystic fluid is appreciated. The common bile duct is not dilated. SPLEEN: Unremarkable. PANCREAS: Normal CT appearance. ADRENALS: No nodules. KIDNEYS: No solid lesions. No calculi. No hydroureteronephrosis. Approximately 4.5 cm simple appearing cyst is stable in the left midpole. BOWEL: Nondilated. MESENTERY/PERITONEUM: Unremarkable. NODES: Nondilated. PELVIS: Unremarkable. BONE WINDOWS: No aggressive osseous abnormalities. VASCULATURE: Normal, without aneurysm or significant atherosclerotic disease. SOFT TISSUES: A small fat-containing umbilical hernia is appreciated. IMP RESSION: 1. Cholelithiasis. 2. No hepatic or adrenal lesion. 3. No retroperitoneal or pelvic adenopathy. 4. No pulmonary nodule. Reported By Osei Chan MD on 04/01/20 0837 Signed By Osei Chan MD on 04/01/20 0843 Date Time CC: Osei Chan MD; Madhav Pineda MD Techn: BLANCASA Trans Dt/Tm: Trans by: DT Prt Dt/Tm: 4: Total DLP = 69.00 mGy-cm : Total Radiation Dose = 1.0350 mSv Lifetime Dose: 6.2350 mSv Name Value Range Interpretation Code Description Data Tess rce(s) Supporting Document(s) ID Date Data Source [id number] 04/06/2020 02:58:00 PM EDT [facility] Name Value Range Interpretation Code Description Data Tess rce(s) Supporting Document(s) IGAMS IgG result 808 mg/dL 610-1,616 Normal (applies to non-numeric results) [facility] IGAMS IgA result 170 mg/dL 85-499 Normal (applies to non-numeric results) [facility] IGAMS IgM result 35 mg/dL 35-242 Normal (applies to non-numeric results) [facility] Test performed [place] [address] ID Date Data Source [id number] 04/06/2020 02:58:00 PM EDT [facility] Name Value Range Interpretation Code Description Data Tess rce(s) Supporting Document(s) DNA (Double Stranded) Ab res <30.0 Normal (applies to non-numeric results) [facility] Negative: <30.0 IU/mL Borderline Positive: 30.0 - 75.0 IU/mL Positive: >75.0 IU/mL Results were obtained with the EdutorA Lite dsDNA [place] assay on the ENEFproX. Test performed or referred by The [address] [address] ID Date Data Source [id number] 04/06/2020 02:58:00 PM EDT [facility] Name Value Range Interpretation Code Description Data Tess rce(s) Supporting Document(s) Total Protein 6.3 - 7.9 [facility] Albumin 3.4-4.7 [facility] Alpha-1 Globulin 0.1-0.3 Normal (applies to non-numeric results) [facility] Alpha-2 Globulin 0.6-1.0 Normal (applies to non-numeric results) [facility] Beta-Globulin 0.7-1.2 Normal (applies to non-numeric re sults) [facility] Gamma-Globulin 0.6-1.6 Normal (applies to non-numeric r esults) [facility] A/G Ratio Normal (applies to non-numeric results) [facility] Impression Normal (applies to non-numeric resul ts) [facility] No apparent monoclonal protein on serum electrophoresis. See Immunofixation. Immunofixation Normal (applies to non-numeric r esults) [facility] RESULT: No monoclonal protein detected. Test Performed by: [facility] [address] [place] [address] Ice Plant Operator: Compa Kaur M.D. Ph.D.; CLIA# [id number] ID Date Data Source [id number] 04/06/2020 02:58:00 PM EDT [facility] Value Range Interpretation Code Description Data Tess rce(s) Supporting Document(s) [place] Free Light Chain Normal (applies to non-n umeric results) [facility] REFERENCE VALUE------ 0.3300-1.94 Lambda Free Light Chain Normal (applies to non- numeric results) [facility] REFERENCE VALUE------ 0.5700-2.63 [place]/Lambda FLC Ratio Normal (applies to non-n umeric results) [facility] REFERENCE VALUE------ 0.2600-1.65 Test Performed by: [place] [address] [employer] Plant Operator: Compa Kaur M.D. Ph.D.; CLIA# [id number] ID Date Data Source [id number] 04/06/2020 02:58:00 PM EDT [facility] Value Range Interpretation Code Description Data Tess rce(s) Supporting Document(s) LCMS Leuk/Lymph Phen result Normal (applies to non-numeric results) [facility] LCMS Final Diagnosis Normal (applies to non-num [place]on results) [facility] Peripheral blood, flow cytometric immuno phenotyping: Normal immunophenotyping results. No monotypic B-cell population or increase in blasts identified. Reviewed by: Hakan Sanz M.D. LCMS Special Studies Normal (applies to non-num [place]on results) [facility] WBC: 2.5 x 10(9)/L %Lymphs (CBC/automa jamee differential): 28% #Lymphs (CBC/automated differential): 0.7 x 10(9)/L Results: Blasts: Not increased by CD45/side scatter and CD34. B-cells: No monotypic; normal expression pattern of CD19, CD10, surface kappa and lambda. T-cells/NK-cells: No aberrant phenotype by CD3 and CD16. Viability: Acceptable Viable lymphocytes (7-AAD): 95% Quality Assessment: Specimen received within validated guidelines. LCMS Microscopic Description Normal (applies to non-numeric results) [facility] A Jqnsvg-Fcspje-kfhmdrj slide prepared f rom the flow cytometry specimen is examined. No morphologic features of acute leukemia or lymphoma are identified. ADDITIONAL INFORMATION This test was developed using an analyte specific reagent. Its performance characteristics were determined by [facility] in a manner consistent with CLIA requirements. This test has not been cleared or approved by the U.S. Food and Drug Administration. Test Performed by: [facility] [place] [address] Ice Plant Operator: Compa Kaur M.D. Ph.D.; CLIA# [id number] ID Date Data Source [id number] 04/06/2020 02:58:00 PM EDT [facility] Name Value Range Interpretation Code Description Data Tess rce(s) Supporting Document(s) Genoptix Compass,WB result Normal (applies to n on-numeric results) [facility] ID Date Data Source [id number] 03/11/2020 04:05:00 PM EDT [facility] Name Value Range Interpretation Code Description Data Tess rce(s) Supporting Document(s) Hep C Ab-T Test Nonreactive Normal (applies to non-numeric results) [facility] Hep Bs Ag Result T-Test Nonreactive Normal (applies to non -numeric results) [facility] HBCT Nonreactive Normal (applies to non-numeric resu lts) [facility] HAVM Nonreactive Normal (applies to non-numeric resu lts) [facility] ID Date Data Source [id number] 03/11/2020 02:44:00 PM EDT [facility] Name Value Range Interpretation Code Description Data Tess rce(s) Supporting Document(s) Sodium 140 mmol/L 137-145 Normal (applies to non-numeric resul ts) [facility] Potassium 3.5-5.1 Below low normal [facility] Chloride 106 mmol/L 98-112 Normal (applies to non-numeric resul ts) [facility] Carbon Dioxide CO2 22.0-33.0 Normal (applies to non-numer ic results) [facility] Anion Gap 4.0-11.0 Normal (applies to non-numeric resul ts) [facility] BUN 15 mg/dL 7-17 Normal (applies to non-numeric resul ts) [facility] Creatinine 0.70-1.[address] [facility] GFR >60 Normal (applies to non-numeric results) [facility] Result based on MDRD formula. Glucose Level 94 mg/dL 74-99 Normal (applies to non-numeric re sults) [facility] The reference range is only applicable w hen fasting. Calcium-Uncorrected 8.4-10.2 Normal (applies to non-nume lisset results) [facility] Corrected Calcium 8.4-10.2 Normal (applies to non-numeri c results) [facility] Bilirubin,Total 0.2-1.3 Normal (applies to non-numeric results) [facility] SGOT(AST) 16 U/L 14-36 Normal (applies to non-numeric resul ts) [facility] SGPT(ALT) 25 U/L 9-52 Normal (applies to non-numeric resul ts) [facility] Alkaline Phosphatase 78 U/L 38-126 Normal (applies to non-num t[place]on results) [facility] can increase Alkaline Phosp le vels up to 2 times the normal adult value. Normal values for children and adolescents are 2 to 3 times the normal adult value. Total Protein 6.3-8.2 Normal (applies to non-numeric re sults) [facility] Albumin 3.5-5.0 Normal (applies to non-numeric resul ts) [facility] ID Date Data Source [id number] 03/11/2020 02:44:00 PM EDT [facility] Name Value Range Interpretation Code Description Data Tess rce(s) Supporting Document(s) LDH 157 U/L 84-246 Normal (applies to non-numeric resul ts) [facility] ID Date Data Source [id number] 03/11/2020 02:44:00 PM EDT [facility] Name Value Range Interpretation Code Description Data Tess rce(s) Supporting Document(s) C-Reactive Protein,Wide Range <3.00 Above high normal [facility] ID Date Data Source [id number] 03/11/2020 02:44:00 PM EDT [facility] Name Value Range Interpretation Code Description Data Tess rce(s) Supporting Document(s) Vitamin B12 263 pg/mL 193-986 Normal (applies to non-numeric resu lts) [facility] ID Date Data Source [id number] 03/11/2020 02:44:00 PM EDT [facility] Name Value Range Interpretation Code Description Data Tess rce(s) Supporting Document(s) Folate 2.76-20.0 Above high normal [facility] ID Date Data Source [id number] 03/11/2020 01:08:00 PM EDT [facility] Name Value Range Interpretation Code Description Data Tess rce(s) Supporting Document(s) White Blood Count 4.8-10.8 Below low normal [facility] Red Blood Count 3.68-5.22 Normal (applies to non-numeric results) [facility] Hemoglobin 11.2-15.7 Normal (applies to non-numeric resul ts) [facility] Hematocrit 34.1-44.9 Normal (applies to non-numeric resul ts) [facility] Mean Corpuscular Volume 81-99 Normal (applies to non- numeric results) [facility] Mean Corpuscular Hemoglobin 27.0-33.0 Normal (appli es to non-numeric results) [facility] Mean Corpuscular HGB Conc 32.0-36.0 Normal (applies to no n-numeric results) [facility] Red Cell Distribution Width 11.5-14.5 Normal (appli es to non-numeric results) [facility] Platelet Count 199 X10 3/uL 130-450 Normal (applies to non-numeric results) [facility] Mean Platelet Volume 9.5-12.7 Normal (applies to non-num t[place]on results) [facility] Imm Grans% (AUTO) 0 % 0-2 Normal (applies to non-numeri c results) [facility] Neutrophils % (AUTO) 63 % 40-75 Normal (applies to non-num trenton results) [facility] Lymphocytes % (AUTO) 23 % 21-46 Normal (applies to non-num trenton results) [facility] Monocytes % (AUTO) 12 % 5-12 Normal (applies to non-numer ic results) [facility] Eosinophils % (AUTO) 1 % 1-5 Normal (applies to non-num trenton results) [facility] Basophils % (AUTO) 0 % 0-1 Normal (applies to non-numer ic results) [facility] Imm Grans# (AUTO) 0.0-0.5 Normal (applies to non-numeri c results) [facility] Neutrophils # (AUTO) 1.5-8.1 Normal (applies to non-num trenton results) [facility] Lymphocytes # (AUTO) 1.0-3.1 Below low normal [facility] Monocytes # (AUTO) 0.2-1.3 Normal (applies to non-numer ic results) [facility] Eosinophils# (AUTO) 0.0-0.5 Normal (applies to non-nume lisset results) [facility] Basophils # (AUTO) 0.0-0.1 Normal (applies to non-numer ic results) [facility] ID Date Data Source [id number] 02/24/2020 10:19:00 AM EDT [facility] [address] [place] [address] [phone] NAME SEX PT STATUS ACCOUNT NUMBER SANDRA TREVINO REG REF [id number] ORDERING PHYSICIAN LOCATION MEDICAL RECORD NO. Anisha EstradaDO TOBIAS [id number] ATTENDING PHYSICIAN DATE OF DATE OF EXAM/TIME Madhav Pineda MD 1965 02/23/20 / 1628 TYPE / EXAM 3D DIG MAMMO SCREEN BILAT REASON FOR EXAM Screening for breast cancer LAST CLINICAL BREAST EXAM: December 2019 FIVE YEAR RISK: 2.9% LIFETIME RISK: 17.7% FAMILY HISTORY OF BREAST CARCINOMA: Mother COMPARISON: January 08, 2019 and September 02, 2017 2D bilateral digital mammogram in the CC and MLO projections was performed with supplemental 3D tomosynthesis of both breasts. FINDINGS: Biopsy clip is the upper-outer quadrant of the left breast, a stable finding. Craniocaudad and oblique lateral views of the breasts were obtained. The breasts are primarily of fat density. There is no dominant mass, suspicious clustered microcalcification or architectural distortion. IMPRESSION: No mammographic evidence of malignancy. Yearly screening recommended. OVERALL FINAL ASSESSMENT OF FINDINGS BI-RADS 1 - Negative OVERALL FINAL ASSESSMENT OF THE BREAST COMPOSITION Breast Density Classification: A Description: The breasts are almost entirely fatty. This mammogram was read with the assistance of [employer], an FDA-approved computer-aided detection system for mammography. Reported By Osei Chan MD on 02/24/20 1019 Signed By Osei Chan MD on 02/24/20 1020 Date Time CC: Osei Chan MD; Madhav Pineda MD Techn: PELBU Trans Dt/Tm: Trans by: DT Prt Dt/Tm: : Total DLP = 0.00 mGy-cm : Total Radiation Dose = 0.0000 mSv Lifetime Dose: 0 mSv Name Value Range Interpretation Code Description Data Tess rce(s) Supporting Document(s) ID Date Data Source [id number] 02/12/2020 09:59:00 AM EDT [facility] Name Value Range Interpretation Code Description Data Tess rce(s) Supporting Document(s) Anti-Streptolysin O Antibody 0 - 530 Normal (appl ies to non-numeric results) [facility] Test Performed by: [facility] [place] [address] Ice Plant Operator: Compa Kaur M.D. Ph.D.; CLIA# [id number] ID Date Data Source [id number] 02/12/2020 09:59:00 AM EDT [facility] Name Value Range Interpretation Code Description Data Tess rce(s) Supporting Document(s) RACHLE Interpretation Result Negative Very a bnormal (applies to non-numeric units [facility] For titers greater than or equal to 1:16 0 (except the centromere and nucleolar patterns) it is recommended that specific follow-up autoantibody testing (such as for dsDNA and Extractable Nuclear Antigens) be performed on all diffuse and/or speckled patterns NOTE: For add-on testing dsDNA is stable for 7 days refrigerated while Extractable Nuclear Antigens are only stable for 48 hours refrigerated. RACHEL Titer Pattern 1 Reflex Normal (applies to n on-numeric results) [facility] Results were obtained with the [employer]OVA NOV A Lite HEp-2 RACHEL Kit by indirect immunofluorescence. Test performed [place] [address] ID Date Data Source [id number] 02/12/2020 09:59:00 AM EDT [facility] Name Value Range Interpretation Code Description Data Tess rce(s) Supporting Document(s) Lyme Disease Serology result Negative Normal (appl ies to non-numeric results) [facility] No evidence of antibodies to B. burgdorf shorty detected. False negative results may occur in recently infected patients (<=2 weeks) due to low or undetectable antibody levels to B. burgdorferi. If recent exposure is suspected, a second sample should be collected and tested in 2-4 weeks. Test Performed by: [place] [address] [employer] Plant Operator: Compa Kaur M.D. Ph.D.; CLIA# [id number] ID Date Data Source [id number] 02/10/2020 12:46:00 PM EDT [facility] Name Value Range Interpretation Code Description Data Tess rce(s) Supporting Document(s) White Blood Count 4.8-10.8 Below low normal [facility] Red Blood Count 3.68-5.22 Normal (applies to non-numeric results) [facility] Hemoglobin 11.2-15.7 Normal (applies to non-numeric resul ts) [facility] Hematocrit 34.1-44.9 Normal (applies to non-numeric resul ts) [facility] Mean Corpuscular Volume 81-99 Normal (applies to non- numeric results) [facility] Mean Corpuscular Hemoglobin 27.0-33.0 Normal (appli es to non-numeric results) [facility] Mean Corpuscular HGB Conc 32.0-36.0 Normal (applies to no n-numeric results) [facility] Red Cell Distribution Width 11.5-14.5 Normal (appli es to non-numeric results) [facility] Platelet Count 182 X10 3/uL 130-450 Normal (applies to non-numeric results) [facility] Mean Platelet Volume 9.5-12.7 Normal (applies to non-num trenton results) [facility] Imm Grans% (AUTO) 0 % 0-2 Normal (applies to non-numeri c results) [facility] Neutrophils % (AUTO) 73 % 40-75 Normal (applies to non-num trenton results) [facility] Lymphocytes % (AUTO) 19 % 21-46 Below low normal [facility] Monocytes % (AUTO) 6 % 5-12 Normal (applies to non-numer ic results) [facility] Eosinophils % (AUTO) 3 % 1-5 Normal (applies to non-num trenton results) [facility] Basophils % (AUTO) 0 % 0-1 Normal (applies to non-numer ic results) [facility] Imm Grans# (AUTO) 0.0-0.5 Normal (applies to non-numeri c results) [facility] Neutrophils # (AUTO) 1.5-8.1 Normal (applies to non-num trenton results) [facility] Lymphocytes # (AUTO) 1.0-3.1 Below low normal [facility] Monocytes # (AUTO) 0.2-1.3 Normal (applies to non-numer ic results) [facility] Eosinophils# (AUTO) 0.0-0.5 Normal (applies to non-nume lisset results) [facility] Basophils # (AUTO) 0.0-0.1 Normal (applies to non-numer ic results) [facility] ID Date Data Source [id number] 02/10/2020 12:46:00 PM EDT [facility] Name Value Range Interpretation Code Description Data Tess rce(s) Supporting Document(s) Erythrocyte Sedimentation ESR 24 mm/hr 0-20 Above high normal [facility] ID Date Data Source [id number] 02/10/2020 12:03:00 PM EDT [facility] Name Value Range Interpretation Code Description Data Tess rce(s) Supporting Document(s) Cyclic Citrullinated Pep Ab,S <5.00 Normal (applies t o non-numeric results) [facility] anti-CCP IgG antibodies were not detecte d. ID Date Data Source [id number] 02/10/2020 11:47:00 AM EDT [facility] Name Value Range Interpretation Code Description Data Tess rce(s) Supporting Document(s) Sodium 139 mmol/L 137-145 Normal (applies to non-numeric resul ts) [facility] Potassium 3.5-5.1 Normal (applies to non-numeric resul ts) [facility] Chloride 107 mmol/L 98-112 Normal (applies to non-numeric resul ts) [facility] Carbon Dioxide CO2 22.0-33.0 Normal (applies to non-numer ic results) [facility] Anion Gap 4.0-11.0 Normal (applies to non-numeric resul ts) [facility] BUN 16 mg/dL 7-17 Normal (applies to non-numeric resul ts) [facility] Creatinine 0.70-1.[address] [facility] GFR >60 Normal (applies to non-numeric results) [facility] Result based on MDRD formula. Glucose Level 112 mg/dL 74-99 Above high normal [facility] The reference range is only applicable w hen fasting. Calcium-Uncorrected 8.4-10.2 Normal (applies to non-nume lisset results) [facility] Corrected Calcium 8.4-10.2 Normal (applies to non-numeri c results) [facility] Bilirubin,Total 0.2-1.3 Normal (applies to non-numeric results) [facility] SGOT(AST) 15 U/L 14-36 Normal (applies to non-numeric resul ts) [facility] SGPT(ALT) 27 U/L 9-52 Normal (applies to non-numeric resul ts) [facility] Alkaline Phosphatase 85 U/L 38-126 Normal (applies to non-num trenton results) [facility] can increase Alkaline Phosp le vels up to 2 times the normal adult value. Normal values for children and adolescents are 2 to 3 times the normal adult value. Total Protein 6.3-8.2 Normal (applies to non-numeric re sults) [facility] Albumin 3.5-5.0 Normal (applies to non-numeric resul ts) [facility] ID Date Data Source [id number] 02/10/2020 11:47:00 AM EDT [facility] Name Value Range Interpretation Code Description Data Tess rce(s) Supporting Document(s) Uric Acid 2.6-6.0 Normal (applies to non-numeric resul ts) [facility] ID Date Data Source [id number] 02/10/2020 11:47:00 AM EDT [facility] Name Value Range Interpretation Code Description Data Tess rce(s) Supporting Document(s) Rheumatoid Factor 0.0-15.0 Normal (applies to non-numeri c results) [facility] ID Date Data Source [id number] 02/10/2020 11:47:00 AM EDT [facility] Name Value Range Interpretation Code Description Data Tess rce(s) Supporting Document(s) C-Reactive Protein,Wide Range <3.00 Above high normal [facility] ID Date Data Source [id number] 01/28/2020 06:48:00 AM EDT [facility] LAST MENSTRUAL PERIOD [id number] ction Technique: BRUSH-ALONEPATIENT INFORMATION: MENOPAUSALPREVIOUS CYTOLOGY: NEGATIVEDATES AND RESULTS: TAHBSO for endoCAPREVIOUS TREATMENT: RADIATIONBody Site: VAGINA Name Value Range Interpretation Code Description Data Tess rce(s) Supporting Document(s) Microscopic observation [Identifier] in Cervix by Cyto stain.thin pre p [facility] ID Date Data Source [id number] 01/11/2020 03:02:00 PM EDT [facility] Patient Name: Sandra Trevino : 1965 Sex: F Pt Unit #: [id number] Location:[facility] Provider: Visit Date/Time: 01/11/20 Primary Insurance: [facility] Secondary Insurance: Self Pay Intake Vital Signs 01/11/20 15:02 Current Height 5 ft 1 in Current Weight 189 lb Weight Measurement Method Standing Scale BMI 35.6 BP 132/84 Blood Pressure Location Lt brachial Position Sitting Respiration 16 Pulse 80 Pulse Strength Normal Pulse Source Pulse Oximeter Temp 98.1 F Temp Source Oral Pulse Oximetry (%) 97 Oxygen Delivery Method room air Intake Visit Reasons: [employer] annual exam Nurse Note: 54 year old G0 here today for her 6 month repeat pap as advised by Dr. Crocker. The pt.needed a pap every 3 months for 2 years and a pap every 6 months for 1 year. This is her first 6 month pap. She will be due for one in another 6 months followed by yearly paps there after. The pt has a history of endometrial adenocarcinoma. She has s history of a left brst biopsy with a clip placed. BLAYNE BSO. Her mother had breast ca. Denies any vaginal dryness or painful intercourse. Is patient in pain?: No Allergies ibuprofen [From ADVIL] Adverse Reaction (Mild, Unverified 10/08/17 13:03) Facial swelling Is last menstrual period known: Yes Last menstrual period: 08/29/17 Post menopausal: Yes PHQ-2/9 Over the last 2 weeks, how often have you been bothered by any of the following problems? 1. Little interest or pleasure in doing things: not at all 2. Feeling down, depressed, or hopeless: not at all Total score: 0 If you checked off any problems, how difficult have these problems made it for you to do your work, take care of things at home, or get along with other people?: not difficult at all Source: Developed by Drs. Saeid Darden, Amanda Stewart, Norm London and colleagues, with an educational aubree from [employer]. HIV Testing Offer - ages 13-64 Requirement for HIV testing offer been met?: Declines today. Pretest education received and acknowledged Hep C Testing Offered: Yes Hep C Requirement met: Refuses today SBIRT Annual Questionnaire Are you currently in recovery for alcohol or substance use?: No How many times in the past year have you had 4 or more drinks in a day?: None How many times in the past year have you used a recreational drug or used a prescription medication for nonmedical reasons?: None Coronavirus Screening Screening Have you traveled outside of [facility] or [facility] in the last 14 days.: Yes Has patient experienced coronavirus symptoms: No PFSH Medical History Allergic rhinitis Asthma Deviated septum (Acute) menses @ 10,menopause @ 48,no pregnancies Surgical History Biopsy of breast (10/01/17) History of - surgery History of hysterectomy Status post tonsillectomy Family History (Updated 01/11/20 @ 15:20 by Luly Butler) Mother Breast cancer Heart disease Cancer Other Hyperlipidemia Hypertension Social History Does the Patient have a Healthcare Proxy: No Does Patient have a DNR?: No Does Patient have a Living Will?: No Does the Patient have a MOLST?: No Advance Directives on File or in chart?: Yes adopted: No household members: spouse housing: house lives independently: Yes number of children: 0 highest education level completed: Associate degree: occupational, technical, vocational program service: No current occupational status: employed current occupation: [employer] Hx Recent Travel (where): No sexually active: No do you think of yourself as: straight/heterosexual current gender identity: female well-balanced diet: about half the time caffeine: Yes Type: coffee daily servings fruits/ve or more times/day daily servings of milk/calcium: 0-1 alcohol intake: current alcohol intake frequency: holidays/special occasions only Alcohol type: beer substance use type: does not use seatbelt use: always drive intox or ride w/ intox local company tanker driver: No water heater temp set < 120 deg: Yes working smoke detector in home: Yes fire extinguisher in home: No carbon monox detector in home: No firearms in home: Yes firearms unloaded and locked: Yes do you feel safe at home: Yes victim of physical abuse: No victim of emotional abuse: No victim of sexual abuse: No would you like helpful sources: No Female Reproductive History Menstrual Age of Menarche: 10 Date of last menstrual period: 08/29/17 control method: none Menopause type: surgical Total pregnancies: 0 Ab induced: 0 Ab spontaneous: 0 Ectopics: 0 HPI Additional HPI HPI Details: 54 year old G0 here today for her 6 month repeat pap as advised by Dr. Crocker. The pt. needed a pap every 3 months for 2 years and a pap every 6 months for 1 year. This is her first 6 month pap. She will be due for one in another 6 months followed by yearly paps there after. The pt has a history of endometrial adenocarcinoma and is s/p BLAYNE-BSO she had radiation therapy after due tothe advanced disease. She has a history of a left breast biopsy with a clip placed. BLAYNE BSO. Her mother had breast cancer. Denies any vaginal dryness or painful intercourse. Annual [employer] Exam Urogynecologic symptoms: Denies urinary urgency or urinary frequency Menopause concerns/symptoms: Denies hot flashes or vaginal dryness Review of Systems Const Reports system reviewed and no additional complaints, except as documented and Denies headache(s) Eyes Denies loss of vision ENT Denies dysphagia, Denies headache(s) and Reports throat swelling Card Denies chest pain, Denies syncope, Denies pedal edema, Denies lightheadedness and Denies palpitations Resp Denies chest congestion and Denies cough GI Denies abdominal pain, Denies bloating, Denies change in bowel habits and Denies dysphagia Genitourinary: Denies hot flashes, nipple discharge, pelvic pain, prolapse symptoms, urinary urgency, vaginal discharge, vaginal dryness, vaginal odor or vaginal pruritus Musc Denies abnormal gait, Denies back pain and Denies joint swelling Skin/Breast Denies breast skin changes, Denies breast pain, Denies breast mass, Denies changing lesions, Denies nipple discharge, Denies non-healing lesions, Denies erythema and Denies rash Neuro Denies abnormal gait, Denies syncope, Denies headache(s) and Denies loss of vision Psych Denies anxiety and Denies depression Endo Denies palpitations Delvin/Lymph Denies easy bleeding, Denies easy bruising and Denies lymphadenopathy Aller/Immun Reports throat swelling Exam Const General: cooperative, healthy appearing, comfortable, no acute distress, well developed and well groomed Nutritional Appearance: average body habitus, well nourished and obese Orientation: alert, awake and oriented x3 Neck Neck: normal visual inspection Chest Chest: normal inspection of the chest Breast/Axilla Inspection: normal inspection of the breasts and normal inspection of the axillae Breast/Axilla Palpation: normal palpation of the breasts and normal palpation of the axillae Resp Effort Inspection: normal respiratory effort and able to speak in complete sentences Cardio Rate: regular rate GI Inspe ction: Yes normal to inspection, No abdominal distension and Yes incision (hysterectomy) Palpation: soft and no hepatosplenomegaly General: bladder normal to palpation External Female Exam: normal external appearance (with atrophy) and normal appearance of the urethra Urethra: normal appearance of the urethra Speculum Exam - Vagina: normal vaginal discharge, vagina atrophic, not erythematous, no lesions, No vaginal bleeding and no masses Speculum Exam - Cervix: Cervix absent (cuff intact without granulation tissue. ) Bimanual Exam- Vagina Uterus: normal bimanual exam, normal palpation, bladder normal to palpation and uterus absent Bimanual Exam- Adnexa, other: no masses and normal Pelvic Support: normal OB/External Speculum: No vaginal bleeding Speculum Exam: no vaginal bleeding Skin Lesions: no lesions Rashes: no rashes Neuro General: patient alert, patient awake, patient oriented x3, gait normal and moves all extremities Extrem General: normal to inspection Psych Appearance: grossly normal and well kempt Mental Status: mental status grossly normal Speech and Movement: speech and movement normal Affect: normal affect Attitude: cooperative Assessment Plan Assessment Plan (1) Encounter for Routine Gynecological Examination: Code(s): Z01.419 - Encounter for gynecological examination (general) (routine) without abnormal findings Plan - Anisha Estrada DO: Breast cancer screening with mammogram ordered. Discussed DEXA scan at 89 or earlier with history of surgical menopause. Orders: Orders: 3D DIG MAMMO SCREEN BILAT 365 Days PAP w HPV- Genotype if Positive 01/11/20 (2) History of endometrial cancer: Status: Acute Code(s): Z85.42 - Personal history of malignant neoplasm of other parts of uterus SNOMED Code(s): 167424288 Category: Medical Orders: Orders: 3D DIG MAMMO SCREEN BILAT 365 Days PAP w HPV-Genotype if Positive 01/11/20 (3) History of radiation therapy: Status: Acute Code(s): Z92.3 - Personal history of irradiation SNOMED Code(s): 164307202 Category: Medical Plan - Anisha Estrada DO: Pap done for monitoring of vaginal cuff after radiation. Orders: Orders: 3D DIG MAMMO SCREEN BILAT 365 Days PAP w HPV- Genotype if Positive 01/11/20 (4) S/P hysterectomy with oophorectomy: Status: Acute Code(s): Z90.710 - Acquired absence of both cervix and uterus; Z90.721 - Acquired absence of ovaries, unilateral SNOMED Code(s): 519784462 Category: Surgical Orders: Orders: 3D DIG MAMMO SCREEN BILAT 365 Days PAP w HPV-Genotype if Positive 01/11/20 Orders Other Orders: Orders: 3D DIG MAMMO SCREEN BILAT 365 Days Z12.31 Electronically Signed By: <Electronically signed by Anisha Estrada DO> Date/Time Signed: 02/01/20 0417 Name Value Range Interpretation Code Description Data Tess rce(s) Supporting Document(s) ID Date Data Source [id number] 01/05/2020 09:16:00 AM EDT [facility] Therapy Department Sandra Trevino : 1965 [id number] Attending: Ju Dowell MD OT Outpatient Evaluation - Patient Information Insurance type:: Insurance: Comp - Evaluation Diagnosis:: B radial sesamoiditis, B trigger thumb, B CTS, R wrist pain - Evaluation Subjective:: Pt. is a 54 y.o. R hand dominant female who has been increased pain in BUE's in the past few months. 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 She was using thumb supports but her hands felt better so she stopped using them. 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 She states that it is very repetitive and she goes as fast as she can. 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 Pt. has not received any cortisone shots. She states that she is having trouble at home with opening things. She states that she can perform ADL's ok. At work she states that she is dropping things. Pt. has no pain at rest but c/o tingling. She states that her pain level can increase to a 10/10 with use or if she hits her hands. Objective:: Hx of possible OA per pt. Numbness noted in digits 2-4 of B hands and in her R thumb. 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 is limited to approx 2 cm of flexion with digits AROM of B oly mbs WNL in all planes Assessment: Pt. has decreased ROM, strength and overall function of B hands with increased pain r/t B CTS, B trigger thumbs and B radial sesamoiditis. Pt. was provided with a HEP to become I with. Pt. encouraged to rest hands as possible. Plan: Therapy will consist of 2-3x/week to increase ROM, strength and overall function of B hands and to decrease pain. Modalities to be used as needed/tolerated. Rehab Potential:: Fair - Plan of Care Plan/instruction: Pain, ADL's, ROM, Strength STG #1: Pt. will be I with HEP in 1 week with 100% accuracy. STG #2: Pt. will make B complete fists without difficulty in 3-4 weeks. STG #3: Pain level will decrease to a 4-5/10 with use/ROM in 3-4 weeks. 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 LTG #2: Pain level will decrease to a 2-3/10 with use/ROM in 6-8 weeks. LTG #3: Pt. will perform all I/ADL's I without difficulty in 6-8 weeks. Frequency: 3x/week Visits Requested: 24 Expiration date of orders:: 03/19/20 Therapist Renu Little 01/05/20 0916 Cosigner: Date Time LAST EDIT: Name Value Range Interpretation Code Description Data Tess rce(s) Supporting Document(s) ID Date Data Source [id number] 08/26/2019 08:06:00 AM [facility] [id number] Technique: BRUSH-S PATULAPATIENT INFORMATION: MENOPAUSALPREVIOUS CYTOLOGY: NEGATIVEPREVIOUS TREATMENT: HYSTERECTOMY TOTALBody Site: VAGINA Name Value Range Interpretation Code Description Data Tess rce(s) Supporting Document(s) Microscopic observation [Identifier] in Cervix by Cyto stain.thin pre p [facility] ID Date Data Source [id number] 08/13/2019 03:41:00 PM [facility] Patient Name: SANDRA TREVINO : 1965 Sex: F Pt Unit #: [id number] Location:[facility] Provider: Visit Date/Time: 08/13/19 Primary Insurance: [facility] Secondary Insurance: Self Pay Intake Vital Signs 08/13/19 15:46 Current Height 5 ft 1 in Current Weight 186 lb 8 oz BMI 35.2 BP 142/86 Blood Pressure Location Lt brachial Position Sitting Respiration 16 Pulse 86 Pulse Strength Normal Pulse Source Pulse Oximeter Temp 98.6 F Temp Source Tympanic Pulse Oximetry (%) 98 Oxygen Delivery Method room air Intake Visit Reasons: Pap Smear Nurse Note: Patient is 53 y/o here today for a [address] Lewis notes I believe this is her last 3 month pap then she can go every 6 months for the next year.Patient agreesthis this. Patient states no other problems today. Air Bag Buffer Required: No Accompanied by: self Is patient in pain?: No Allergies ibuprofen [From ADVIL] Adverse Reaction (Mild, Unverified 10/08/17 13:03) Facial swelling Post menopausal: Yes Patient : No Fall Risk History of falls: No Ambulatory Aid:: None PHQ-2/9 Over the last 2 weeks, how often have you been bothered by any of the following problems? 1. Little interest or pleasure in doing things: not at all 2. Feeling down, depressed, or hopeless: not at all Total score: 0 HIV Testing Offer - ages 13-64 Requirement for HIV testing offer been met?: Declines today. Pretest education received and acknowledged SBIRT Annual Questionnaire Are you currently in recovery for alcohol or substance use?: No Do you need a note to return Do you need a note to return to daycare/school/sports/work: No PFSH Medical History (Updated 08/13/19 @ 17:13 by Oleg Robert MD) Allergic rhinitis Asthma Deviated septum (Acute) menses @ 10,menopause @ 48,no pregnancies Surgical History Biopsy of breast (10/01/17) History of - surgery History of hysterectomy Status post tonsillectomy Family History Mother Breast cancer Heart disease Social History Does the Patient have a Healthcare Proxy: No Does Patient have a DNR?: No Does Patient have a Living Will?: No Does the Patient have a MOLST?: No Advance Directives on File or in chart?: Yes household members: spouse housing: house number of children: 0 highest education level completed: Associate degree: occupational, technical, vocational program service: No current occupational status: employed current occupation: [employer] Recent Travel (where): No sexually active: No do you think of yourself as: straight/heterosexual current gender identity: female well-balanced diet: about half the time caffeine: Yes Type: coffee daily servings fruits/ve or more times/day daily servings of milk/calcium: 0-1 alcohol intake: current alcohol intake frequency: holidays/special occasions only substance use type: does not use victim of physical abuse: No victim of emotional abuse: No victim of sexual abuse: No Female Reproductive History Menstrual Age of Menarche: 10 Menopause type: surgical Ab induced: 0 Ab spontaneous: 0 Ectopics: 0 HPI Additional HPI HPI Details: 53y/o F LMP: 08/2017, S/P BLAYNE/BSO, AdenoCa of Uterus. Was referred to [employer]AMES [employer]SEM[employer] Onc--Milagro Bronson after surgery. Advised Pap q 3 months x 2 years, thisis is the 2 year kp. Then Pap q 6 months x 1 year, starting a fter this Pap. Then q yearly after. Last mammogram: 01/15/2019: Normal. Last Pap: 04/2019: Negative. No other complaints. Review of Systems Const Denies anorexia, Denies fatigue, Denies fever(s), Denies weight gain and Denies weight loss ENT Denies dysphagia GI Denies abdominal pain, Denies change in bowel habits, Denies dysphagia, Denies early satiety, Deniesheartburn, Denies diarrhea, Denies nausea and Denies vomiting Denies abnormal vaginal bleeding, Denies difficulty voiding, Denies pelvic pain, Denies urinary incontinence and Denies urinary urgency Skin/Breast Denies breast pain, Denies change in pigmentation, Denies lesions, Denies nail changes, Denies rash and Denies unusual bruising Endo Denies fatigue Exam Const General: cooperative, healthy appearing, no acute distress, well developed and well groomed Nutritional Appearance: well nourished Orientation: alert, awake and oriented x3 HENMT Head: normal to inspection, normocephalic and atraumatic Ears: hearing grossly normal bilaterally and external ears normal General nose exam: external nose normal, nares normal, septum normal and no nasal discharge Face and sinus: normal facial exam and sinuses nontender Mouth: oral mucosae normal, lip normal, tongue normal and moist mucous membranes External Female Exam: external appearance normal and normal appearance of the urethra Urethra: normal appearance of the urethra Speculum Exam - Vagina: normal vaginal discharge and atrophic vaginal mucosa Speculum Exam - Cervix: cervix absent Bimanual Exam- Vagina Uterus: uterus absent Assessment Plan Assessment Plan (1) Encounter for Papanicolaou smear for cervical cancer screening: Code(s): Z12.4 - Encounter for screening for malignant neoplasm of cervix Plan - Oleg Robert MD: 1. S/P BLAYNE/BSO for AdenoCa of Endometrium. 2. [employer] Onc suggests close f/u with pap: q 3mnths x 2 yrs; q 6 mnths x 1 yr; then annually after. (2) Endometrial carcinoma: Status: Acute Code(s): C54.1 - Malignant neoplasm of endometrium SNOMED Code(s): 146485452 Category: Medical Plan - Oleg Robert MD: 1. S/P BLAYNE/BSO for Poorly diferentiating, deeply invasive Adenocarcinoma of Endometrium. 2. [employer] Oncology referral suggests close f/u with Pap. Orders Other Orders: Orders: PAP W/HPV HIGH RISK Today Z85.3, Z90.710 Follow Up: 6 Months Electronically Signed By: <Electronically signed by Oleg Robert MD> Date/Time Signed: 08/13/19 172 Name Value Range Interpretation Code Description Data Tess rce(s) Supporting Document(s) Procedure Social History Code Duration Value Status Description Data Source(s ) Smoking 07/07/2020 12:00:00 AM EST Patient has never smoked co mpleted Patient has never smoked [facility] ([facility]) Smoking 05/24/2020 12:00:00 AM EDT Never Smoker completed Never [facility] eCW1 ([facility]) Smoking 01/11/2020 04:23:00 PM EDT Never smoker completed Never [facility] 01/11/2020 03:23:01 PM EDT Never smoker completed Never [facility] 01/11/2020 03:23:01 PM EDT Never smoker completed Never [facility] Smoking 01/11/2020 03:23:00 PM EDT Never smoker completed Never [facility] Vital Signs ID Date Data Source UNK Name Value Range Interpretation Code Description Data Source(s) Body surface area Derived from formula 1.82 m2 1.82 m2 [facility] ([facility]) Body weight 83.009 kg 83.009 kg [facility] ([facility]) [place] body weight 105 [lb_av] 105 [lb_av] [facility] Body mass index (BMI) [Ratio] 34.6 kg/m2 34.6 k g/m2 [facility] ([facility]) Body weight 183.00 [lb_av] 183.00 [lb_av] [facility] Body height 61 [in_i] 61 [in_i] [facility] ([facility]) 5'1" Diastolic blood pressure 72 mm[Hg] 72 mm[Hg] [facility] ([facility]) Systolic blood pressure 126 mm[Hg] 126 mm[Hg] [facility] Body surface area Derived from formula 1.78 m2 1.78 m2 [facility] ([facility]) Body weight 81.648 kg 81.648 kg [facility] ([facility], ) Naoma body weight 100 [lb_av] 100 [lb_av] [facility] T ([facility]) Body mass index (BMI) [Ratio] 35.1 kg/m2 35.1 k g/m2 [facility] ([facility]) Body weight 180.00 [lb_av] 180.00 [lb_av] MED[facility] T ([facility], ) Body height 60 [in_i] 60 [in_i] [facility] ([facility]) 5'0" Body temperature 98.6 [degF] 98.6 [degF] [facility] ([facility]) Oxygen saturation in Arterial blood by Pulse oximetry 97 % 97 % [facility] ([facility]) Heart rate 88 /min 88 /min [facility] ([facility]) Diastolic blood pressure 92 mm[Hg] 92 mm[Hg] [facility] ([facility]) Systolic blood pressure 132 mm[Hg] 132 mm[Hg] [facility] Diastolic blood pressure 74 mm[Hg] 74 mm[Hg] eCW1 ([facility]) Systolic blood pressure 138 mm[Hg] 138 mm[Hg] e CW1 ([facility]) Body temperature 99.2 [degF] 99.2 [degF] eCW1 ( [facility]) Respiratory rate 18 /min 18 /min eCW1 ([facility]) Heart rate 75 /min 75 /min eCW1 ([facility]) Body mass index (BMI) [Ratio] kg/m2 eCW1 ([facility]) Body height 6 [in_i] 6 [in_i] eCW1 ([facility]) Body weight 82.1 kg 82.1 kg eCW1 ([facility]) Body weight 181.0 [lb_av] 181.0 [lb_av] eCW1 ([facility])
[2020-09-22] MEDS ORDERED: propofoL 200 MG/20 ML VIAL As Ordered ONE (13:59)
--- NOTE | 2020-09-22 14:46 | ROOR ---
Patient Name: Sandra David Procedure Date: 09/22/2020 1:46 PM Date of : 1965 Age: 54 Room: [facility] Gender: Female Note Status: Finalized Procedure: Colonoscopy Indications: Screening for colorectal malignant neoplasm Providers: Jason Martinez MD Referring MD: Madhav Pineda MD Requesting Provider: Medicines: Monitored Anesthesia Care Complications: No immediate complications. Procedure: Pre-Anesthesia Assessment: - Prior to the procedure, a History and Physical was performed, and patient medications and allergies were reviewed. The patient is competent. The risks and benefits of the procedure and the sedation options and risks were discussed with the patient. All questions were answered and informed consent was obtained. Patient identification and proposed procedure were verified by the physician, the nurse and the anesthesiologist in the procedure room. Mental Status Examination: alert and oriented. Airway Examination: normal oropharyngeal airway and neck mobility. Respiratory Examination: clear to auscultation. CV Examination: normal. Prophylactic Antibiotics: The patient does not require prophylactic antibiotics. Prior Anticoagulants: The patient has taken no previous anticoagulant or antiplatelet agents. ASA Grade Assessment: II - A patient with mild systemic disease. After reviewing the risks and benefits, the patient was deemed in satisfactory condition to undergo the procedure. The anesthesia plan was to use monitored anesthesia care (MAC). Immediately prior to administration of medications, the patient was re-assessed for adequacy to receive sedatives. The heart rate, respiratory rate, oxygen saturations, blood pressure, adequacy of pulmonary ventilation, and response to care were monitored throughout the procedure. The physical status of the patient was re-assessed after the procedure. The Colonoscope was introduced through the anus and advanced to the terminal ileum, with identification of the appendiceal orifice and IC valve. The colonoscopy was performed without difficulty. The patient tolerated the procedure well. Findings: The perianal and digital rectal examinations were normal. The terminal ileum appeared normal. A benign-appearing, intrinsic severe stenosis measuring 1 cm (inner diameter) was found in the distal sigmoid colon and was traversed after downsizing the scope to enteroscope. Biopsies were taken with a cold forceps for histology. Normal mucosa was found from descending colon to cecum. Biopsies for histology were taken with a cold forceps from the right colon, left colon, rectum and rectosigmoid colon for evaluation of microscopic colitis. Verification of patient identification for the specimen was done by the physician and nurse using the patient's name, date and medical record number. Estimated blood loss was minimal. Non-bleeding external and internal hemorrhoids were found during retroflexion. The hemorrhoids were medium-sized. Impression: - The examined portion of the ileum was normal. - Stricture in the distal sigmoid colon. Biopsied. - Normal mucosa from descending to cecum. Biopsied. - Non-bleeding external and internal hemorrhoids. Recommendation: - Patient has a contact number available for emergencies. The signs and symptoms of potential delayed complications were discussed with the patient. Return to normal activities tomorrow. Written discharge instructions were provided to the patient. - High fiber diet. - Continue present medications. - Await pathology results. - Repeat colonoscopy in 5 years for screening purposes. - Refer to a colo-rectal surgeon if symptoms persist. - Return to GI clinic in [facility] (address [address], [address], [place], [facility]) in 4 -- 6 weeks. Please call GI clinic @ [phone] for apppointment date and time. - Return to primary care physician. Procedure Code(s): --- Professional --- 77821, Colonoscopy, flexible; with biopsy, single or multiple Diagnosis Code(s): --- Professional --- Z12.11, Encounter for screening for malignant neoplasm of colon K64.8, Other hemorrhoids K56.699, Other intestinal obstruction unspecified as to partial versus complete obstruction CPT copyright 2019 [employer]. All rights reserved. The codes documented in this report are preliminary and upon broodmare foreman review may be revised to meet current compliance requirements. Jason Martinez MD Jason Martinez MD 09/22/2020 2:46:31 PM Electronically signed by Jason Martinez MD Number of Addenda: 0 Note Initiated On: 09/22/2020 1:46 PM Estimated Blood Loss: Estimated blood loss was minimal.
[2020-09-22 14:55] VITALS: BP 153/77
== END 2020-09-22 14:59 | disposition home or self-care (01) ==
LOC: M OPP 11:48
PROVIDERS: ATTEND Internal Medicine Gastroenterology
DX: K56.699 Other intestinal obstruction unspecified as to partial versus complete obstruction (principal); K64.8 Other hemorrhoids; R19.7 Diarrhea, unspecified; Z88.5 Allergy status to narcotic agent; Z88.6 Allergy status to analgesic agent; K52.89 Other specified noninfective gastroenteritis and colitis

== ENCOUNTER → 2021-07-14 | Outpatient (CLI) | payer OTHER ==
[~2021-07-14] MED LIST changes: -DICY20TA11 PO; +DICY20TA20 PO; -LIDOCAINE 2% 100MG/5ML SDV (FOR ANES.) As Ordered ONE; -NS 1,000 ML IV ONE; -propofoL 200 MG/20 ML VIAL As Ordered ONE
== END ==
LOC: M PLAIMG 09:29
PROVIDERS: ATTEND Internal Medicine Pulmonary Disease
DX: R91.8 Other nonspecific abnormal finding of lung field (principal)

== ENCOUNTER → 2025-07-20 | Outpatient (REF) | payer OTHER ==
[~2025-07-20] MED LIST changes: -VITA500C19 PO; +VITA500C22 PO
[2025-07-20 14:05] LABS: AMORPHOUS SEDIMENT LARGE (NEGATIVE); APPEARANCE, URINE TURBID (CLEAR); BACTERIA, URINE AUTO NEGATIVE (NEGATIVE); BILIRUBIN, URINE AUTO NEGATIVE (NEGATIVE); BLOOD, URINE BLOOD NEGATIVE (NEGATIVE); GLUCOSE, URINE (UA) AUTO NEGATIVE (NEGATIVE); KETONE, URINE AUTO NEGATIVE (NEGATIVE); LEUKOCYTE ESTERASE, URINE AUTO TRACE (NEGATIVE); MUCUS, URINE MODERATE (NEGATIVE); NITRITE, URINE AUTO NEGATIVE (NEGATIVE); PROTEIN, URINE AUTO 1+ mg/dL (NEGATIVE); RBC, URINE AUTO 2 /HPF (0-3); SPECIFIC GRAVITY URINE AUTO 1.030 (1.002-1.035); SQUAMOUS EPITHELIAL CELL UR AU 1 /HPF (0-6); UROBILINOGEN, URINE AUTO 0.2 mg/dL (0.0-2.0); WBC, URINE AUTO 0 /HPF (0-3)
== END ==
LOC: M SMT 13:12
PROVIDERS: ATTEND Nurse Practitioner Family
DX: R32 Unspecified urinary incontinence (principal)